=== PATIENT | female | born 1980 ===

== ENCOUNTER 2017-11-23 19:41 | Inpatient (IN) | payer OTHER ==
[~2017-11-23] VITALS: Ht 162.6 cm; Wt 104.3 kg
[2017-11-23] MEDS ORDERED: FOLIC ACID0.4 MG PO (20:09)
[2017-11-23] MEDS ORDERED: PRENATAL 19 TA1 EACH PO (20:09)
== END 2017-11-27 18:37 | disposition home or self-care (01) | DRG 765 ==
LOC: O/R 19:41 → LDR 19:41 → O/R 11-24 18:12 → OB/GYN 11-25 13:59
PROVIDERS: Obstetrics & Gynecology
PROC: 0UL70ZZ Occlusion of Bilateral Fallopian Tubes, Open Approach (ICD-10-PCS; 2017-11-24)
PROC: 3E033VJ Introduction of Other Hormone into Peripheral Vein, Percutaneous Approach (ICD-10-PCS; 2017-11-24)
PROC: 4A033R1 Measurement of Arterial Saturation, Peripheral, Percutaneous Approach (ICD-10-PCS; 2017-11-24)
PROC: 4A1HXCZ Monitoring of Products of Conception, Cardiac Rate, External Approach (ICD-10-PCS; 2017-11-24)
PROC: 10D00Z1 Extraction of Products of Conception, Low, Open Approach (ICD-10-PCS; principal; 2017-11-24 18:00)
DX: O76 Abnormality in fetal heart rate and rhythm complicating labor and delivery (principal); O45.8X3 Other premature separation of placenta, third trimester; O13.4 Gestational [pregnancy-induced] hypertension without significant proteinuria, complicating childbirth; Z3A.38 38 weeks gestation of pregnancy; Z37.0 Single live birth; Z30.2 Encounter for sterilization; O09.523 Supervision of elderly multigravida, third trimester